=== PATIENT | male | born 1995 | race Caucasian/White ===

== ENCOUNTER 2018-07-27 14:21 | Emergency (ER) | payer BC, OTHER ==
--- NOTE | 2018-07-27 15:30 | RAD REPORT ---
EXAM DESCRIPTION: RAD - Chest Pa And Lat (2 Views) - 07/27/2018 3:24 pm CLINICAL HISTORY: PAIN Chest pain. COMPARISON: No comparisons FINDINGS: The lungs are clear. The heart is normal in size. No displaced fractures. IMPRESSION: No acute or concerning finding suspected.
[2018-07-27] MEDS ORDERED: HYDROCODONE/APAP 10/325 TAB ONE (16:19)
[2018-07-27] MEDS ORDERED: METHOCARBAMOL 500 MG TAB ONE (16:19)
[2018-07-27] MEDS ORDERED: KETOROLAC 30 MG/ML INJ ONE (16:19)
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
== END 2018-07-27 16:45 | disposition home or self-care (01) ==
LOC: ER 14:21
DX: R07.1 Chest pain on breathing (principal); V47.5XXA Car driver injured in collision with fixed or stationary object in traffic accident, initial encounter; F32.9 Major depressive disorder, single episode, unspecified
CPT/HCPCS: 71046; 96372; 99284